=== PATIENT | female | born 1950 | race Caucasian/White ===

== ENCOUNTER 2017-09-13 22:53 | Emergency (ER) | payer MEDICARE, BC ==
[2017-09-13] MEDS ORDERED: Sodium Chloride 0.9% 10 ML Syringe FLUSH PRN (23:01)
[2017-09-13] MEDS ORDERED: Sodium Chloride 0.9% 1,000 ML IV ONE (23:01)
--- NOTE | 2017-09-13 23:12 | EDM.PDOC ---
ED HPI GENERAL MEDICAL PROBLEM - General Chief Complaint: General Stated Complaint: dizziness, shoulder pain Time Seen by Provider: 09/13/17 23:00 Source of Information: Reports: Patient, Family History Limitations: Reports: No Limitations - History of Present Illness INITIAL COMMENTS - FREE TEXT/NARRATIVE: Patient is brought in by family with complaints of nausea, dizziness, and left chest/shoulder pain that started approximately 1 hour ago. Her left chest pain is reproducible on palpation and movement. She denies shortness of breath, headache, abdominal pain, no emesis or blood in her urine or stool. She is forgetful and does appear to have dementia. Home medications include synthroid , namenda, lorazepam, effexor. She denies any prior [place] or CVA. States she has hypothyroidism. She did not faint or lose consciousness. She also did not fall or hit her head. She denies having a primary doctor or taking daily meds but it is her and daughter that remind her of what she is in fact taking. Onset: Today, Sudden Onset Date: 09/13/17 Onset Time: 22:30 Duration: Intermittent Location: Reports: Chest Quality: Reports: Ache Severity: Mild Improves with: Reports: None Worsens with: Reports: Movement Associated Symptoms: Reports: Nausea/Vomiting Left Chest Pain Score (Numeric/FACES): 5 - Related Data Allergies Allergy/AdvReac Type Severity Reaction Status Date / Time No Known Allergies Allergy Verified 09/13/17 23:03 Home Meds: Home Meds Escitalopram [Lexapro] 10 mg PO DAILY 09/13/17 [History] LORazepam 0.5 mg PO Q4H PRN 09/13/17 [History] Levothyroxine 125 mcg PO DAILY 09/13/17 [History] Memantine HCl [Namenda] 5 mg PO BID 09/13/17 [History] Polyethylene Glycol 3350 [MiraLAX] 17 gm PO DAILY PRN 09/13/17 [History] QUEtiapine Fumarate [Seroquel] 25 mg PO BID 09/13/17 [History] ED ROS GENERAL - Review of Systems Review Of Systems: See Below Constitutional: Reports: No Symptoms HEENT: Reports: No Symptoms Respiratory: Reports: No Symptoms Cardiovascular: Reports: Chest Pain Endocrine: Reports: No Symptoms GI/Abdominal: Reports: Nausea : Reports: No Symptoms Musculoskeletal: Reports: Shoulder Pain Skin: Reports: No Symptoms Neurological: Reports: Confusion, Other Psychiatric: Reports: Anxiety Hematologic/Lymphatic: Reports: No Symptoms Immunologic: Reports: No Symptoms ED EXAM, GENERAL - Physical Exam Exam: See Below Exam Limited By: Altered Mental Status (forgetful, answers most questions accurately, not a reliable historian) General Appearance: Alert, WD/WN Eye Exam: Bilateral Eye: EOMI, PERRL Ears: Normal TMs Nose: Normal Inspection, Normal Mucosa, No Blood Throat/Mouth: Normal Inspection, Normal Lips, Normal Teeth, Normal Gums, Normal Oropharynx, Normal Voice, No Airway Compromise Head: Atraumatic, Normocephalic Neck: Normal Inspection, Supple, Non-Tender, Full Range of Motion Respiratory/Chest: No Respiratory Distress, Lungs Clear, Normal Breath Sounds, No Accessory Muscle Use, Chest Non-Tender, Other (left chest/breast area has reproducible pain on palpation and arm movement) Cardiovascular: Normal Peripheral Pulses, Regular Rate, Rhythm, No Edema, No Gallop, No JVD, No Murmur, No Rub Peripheral Pulses: 2+: Posterior Tibial (L), Posterior Tibial (R), Dorsalis Pedis (L), Dorsalis Pedis (R) GI/Abdominal: Normal Bowel Sounds, Soft, Non-Tender, No Organomegaly, No Distention, No Abnormal Bruit, No Mass Back Exam: Normal Inspection, Full Range of Motion, NT Extremities: Normal Inspection, Normal Range of Motion, Non-Tender, Normal Capillary Refill, No Pedal Edema Neurological: Alert, CN II-XII Intact, No Motor/Sensory Deficits, Memory Loss Recent Events. No: Oriented Psychiatric: Anxious Skin Exam: Warm, Dry, Intact, Normal Color, No Rash Lymphatic: No Adenopathy Course - Vital Signs Last Recorded V/S: Last Vital Signs Temp 36.6 C 09/13/17 23:04 Pulse 53 L 09/13/17 23:04 Resp 18 09/13/17 23:04 BP 122/55 L 09/13/17 23:04 Pulse Ox 100 09/13/17 23:04 - Orders/Labs/Meds Orders: Active Orders 24 hr Category Date Time Status EKG Documentation Completion [RC] URGENT Care 09/13/17 23:01 Active Saline Lock Insert [OM.PC] Routine Oth 09/13/17 23:01 Ordered Labs: Laboratory Tests 09/13/17 09/13/17 09/13/17 Range/Units 23:42 23:42 23:42 WBC 10.0 (4.0-10.0) x10^3/uL RBC 4.36 (4.00-5.50) x10^6/uL Hgb 13.3 (12.0-16.0) g/dL Hct 40.5 (33.0-47.0) % MCV 92.9 (78.0-93.0) fL MCH 30.5 (26.0-32.0) pg MCHC 32.8 (32.0-36.0) g/dL RDW Coeff of Marcel 13.0 (10.0-15.0) % Plt Count 192 (130-400) x10^3/uL Neut % (Auto) 81.0 H (50.0-80.0) % Lymph % (Auto) 11.3 L (25.0-50.0) % [place] % (Auto) 6.1 (2.0-11.0) % Eos % (Auto) 1.2 (0.0-4.0) % Baso % (Auto) 0.4 (0.2-1.2) % PT 10.1 (9.6-11.4) SEC INR 1.0 L (2.0-3.5) Sodium 143 (136-145) mmol/L Potassium 3.8 (3.5-5.1) mmol/L Chloride 104 (98-107) mmol/L Carbon Dioxide 31 (21-32) mmol/L Anion Gap 11.8 (10-20) mmol/L BUN 15 (7-18) mg/dL Creatinine 1.0 (0.55-1.02) mg/dL Est Cr Clr Drug Dosing TNP Estimated GFR (MDRD) 55 Glucose 96 (74-106) mg/dL Lactic Acid (0.4-2.0) mmol/L Calcium 9.1 (8.5-10.1) mg/dL Corrected Calcium 9.26 (8.5-10.1) mg/dL Magnesium 2.3 (1.8-2.4) mg/dL Total Bilirubin 0.3 (0.2-1.0) mg/dL AST 29 (15-37) U/L ALT 29 (14-59) U/L Alkaline Phosphatase 87 (46-116) U/L Troponin I < 0.017 (<=0.056) ng/mL NT-Pro-B Natriuret Pep 177 H (<=125) pg/mL Total Protein 7.0 (6.4-8.2) g/dL Albumin 3.8 (3.4-5.0) g/dL Globulin 3.2 Albumin/Globulin Ratio 1.19 TSH, Ultra Sensitive 8.580 H (0.358-3.74) uIU/mL 09/13/17 Range/Units 23:42 WBC (4.0-10.0) x10^3/uL RBC (4.00-5.50) x10^6/uL Hgb (12.0-16.0) g/dL Hct (33.0-47.0) % MCV (78.0-93.0) fL MCH (26.0-32.0) pg MCHC (32.0-36.0) g/dL RDW Coeff of Marcel (10.0-15.0) % Plt Count (130-400) x10^3/uL Neut % (Auto) (50.0-80.0) % Lymph % (Auto) (25.0-50.0) % [place] % (Auto) (2.0-11.0) % Eos % (Auto) (0.0-4.0) % Baso % (Auto) (0.2-1.2) % PT (9.6-11.4) SEC INR (2.0-3.5) Sodium (136-145) mmol/L Potassium (3.5-5.1) mmol/L Chloride (98-107) mmol/L Carbon Dioxide (21-32) mmol/L Anion Gap (10-20) mmol/L BUN (7-18) mg/dL Creatinine (0.55-1.02) mg/dL Est Cr Clr Drug Dosing Estimated GFR (MDRD) Glucose (74-106) mg/dL Lactic Acid 1.3 (0.4-2.0) mmol/L Calcium (8.5-10.1) mg/dL Corrected Calcium (8.5-10.1) mg/dL Magnesium (1.8-2.4) mg/dL Total Bilirubin (0.2-1.0) mg/dL AST (15-37) U/L ALT (14-59) U/L Alkaline Phosphatase (46-116) U/L Troponin I (<=0.056) ng/mL NT-Pro-B Natriuret Pep (<=125) pg/mL Total Protein (6.4-8.2) g/dL Albumin (3.4-5.0) g/dL Globulin Albumin/Globulin Ratio TSH, Ultra Sensitive (0.358-3.74) uIU/mL Meds: Medications Discontinued Medications Generic Name Dose Route Start Last Admin Trade Name Freq PRN Reason Stop Dose Admin Sodium Chloride 1,000 mls @ 999 mls/hr 09/13/17 23:01 09/13/17 23:31 Normal Saline IV 09/14/17 00:01 999 mls/hr ONETIME ONE Administration Sodium Chloride 10 ml 09/13/17 23:01 Saline Flush FLUSH ASDIRECTED PRN Keep Vein Open Departure - Departure Time of Disposition: 00:23 Disposition: Home, Self-Care 01 Condition: Good Clinical Impression: Chest pain, non-cardiac - Discharge Information Instructions: Chest Wall Pain, [id number] Referrals: Lesley Zarate, [Primary Care Provider] - Forms: ED Department Discharge Additional Instructions: Stay well hydrated. Your chest/shoulder pain do not appear to be related to problems with your heart. I am able to produce that pain when I push on it and when you breathe deeply you experience similar type pain. Your labs are normal except your TSH which is 8.5. This is a high number and should be addressed with your primary. Follow up with Dr. Zarate as needed for additional symptom management. Sometimes your medications can also cause you to become dizzy. Make sure to rise slowly from seated or lying positions. Please call us if you have any questions or concerns. - Problem List & Annotations (1) Chest pain, non-cardiac SNOMED Code(s): 122607217 Code(s): R07.89 - OTHER CHEST PAIN Status: Acute Priority: Low - Problem List Review Problem List Initiated/Reviewed/Updated: Yes - My Orders Last 24 Hours: My Active Orders 09/13/17 23:01 EKG Documentation Completion [RC] URGENT Saline Lock Insert [OM.PC] Routine - Assessment/Plan Last 24 Hours: My Active Orders 09/13/17 23:01 EKG Documentation Completion [RC] URGENT Saline Lock Insert [OM.PC] Routine Assessment:: chest pain, non specific, non cardiac Plan: Stay well hydrated. Your chest/shoulder pain do not appear to be related to problems with your heart. I am able to produce that pain when I push on it and when you breathe deeply you experience similar type pain. Your labs are normal except your TSH which is 8.5. This is a high number and should be addressed with your primary. Follow up with Dr. Zarate as needed for additional symptom management. Sometimes your medications can also cause you to become dizzy. Make sure to rise slowly from seated or lying positions. Please call us if you have any questions or concerns.
[2017-09-14 00:20] LABS: CHLORIDE,CL 104 mmol/L (98-107); SODIUM,NA 143 mmol/L (136-145)
== END 2017-09-14 00:31 | disposition home or self-care (01) ==
LOC: VM.ED 22:53
DX: R07.89 Other chest pain (principal); Z79.899 Other long term (current) drug therapy
CPT/HCPCS: 36415; 80053; 83605; 83735; 83880; 84443; 84484; 85025; 85610; 93005; 96360; 99285; J7030; 99284-GF

== ENCOUNTER 2019-04-23 07:30 | Emergency (ER) | payer MEDICARE, BC ==
[2019-04-23] MEDS ORDERED: Sodium Chloride 0.9% 10 ML Syringe FLUSH PRN (07:43)
--- NOTE | 2019-04-23 07:49 | EDM.PDOC ---
ED HPI GENERAL MEDICAL PROBLEM - General Stated Complaint: HEAD/NECK HURT Time Seen by Provider: 04/23/19 07:45 Source of Information: Reports: Patient History Limitations: Reports: Altered Mental Status (Pt has advanced Alzheimer's /dementia) - History of Present Illness INITIAL COMMENTS - FREE TEXT/NARRATIVE: Patient comes into the emergency department with her family with complaint of unsteadiness and headache. Patient woke up around 2 AM this morning with a headache and unsteady gait. Family was concerned due to the increasing of the patient's verbal regard to the headache and needing to have assistance to walk around the house. They state she did have a fall approximately 7 days ago they do not believe she hit her head for she tripped over her feet and fell onto her side. Her was with her and he ended up falling to when he sustained no injuries. Patient was diagnosed with Alzheimer/dementia approximately 2 years ago and family states that she has advanced stages. They have difficulty understanding and following her at times. But she has been fairly independent with ambulation so they became concerned when she was needing assistance Onset: Sudden - Related Data Allergies Allergy/AdvReac Type Severity Reaction Status Date / Time No Known Allergies Allergy Verified 09/13/17 23:03 Home Meds: Home Meds Escitalopram [Lexapro] 10 mg PO DAILY 09/13/17 [History] LORazepam 0.5 mg PO Q4H PRN 09/13/17 [History] Levothyroxine 125 mcg PO DAILY 09/13/17 [History] Memantine HCl [Namenda] 5 mg PO DAILY 09/13/17 [History] Polyethylene Glycol 3350 [MiraLAX] 17 gm PO DAILY PRN 09/13/17 [History] QUEtiapine Fumarate [Seroquel] 25 mg PO BEDTIME 09/13/17 [History] QUEtiapine [SEROquel] 25 mg PO DAILY 02/03/18 [History] Past Medical History Cardiovascular History: Reports: Hypertension, Other (See Below) Other Cardiovascular History: bacterial endocarditis, aortic and mitral valve leaks Neurological History: Reports: Alzheimers Disease Psychiatric History: Reports: Dementia, Depression, Psychosis Endocrine/Metabolic History: Reports: Hypothyroidism ED ROS GENERAL - Review of Systems Review Of Systems: Comprehensive ROS is negative, except as noted in HPI. Constitutional: Reports: No Symptoms HEENT: Reports: No Symptoms Respiratory: Reports: No Symptoms Cardiovascular: Reports: No Symptoms Endocrine: Reports: No Symptoms GI/Abdominal: Reports: No Symptoms : Reports: No Symptoms Musculoskeletal: Reports: No Symptoms Skin: Reports: No Symptoms Hematologic/Lymphatic: Reports: No Symptoms Immunologic: Reports: No Symptoms ED EXAM, GENERAL - Physical Exam Exam: See Below Exam Limited By: No Limitations General Appearance: No Apparent Distress Eye Exam: Bilateral Eye: EOMI, PERRL Ears: Normal External Exam, Normal Canal, Hearing Grossly Normal Ear Exam: Bilateral Ear: Auricle Normal, Canal Normal, TM normal Neck: Normal Inspection, Supple, Non-Tender, Full Range of Motion Respiratory/Chest: No Respiratory Distress, Lungs Clear, Normal Breath Sounds, No Accessory Muscle Use, Chest Non-Tender Cardiovascular: Normal Peripheral Pulses, Regular Rate, Rhythm, No Edema, No Gallop, No JVD, No Murmur, No Rub Back Exam: Normal Inspection, Full Range of Motion, NT Extremities: Normal Inspection, Normal Range of Motion, Non-Tender, Normal Capillary Refill, No Pedal Edema Neurological: Alert, CN II-XII Intact, No Motor/Sensory Deficits Psychiatric: Normal Affect, Normal Mood Skin Exam: Warm, Dry, Intact, Normal Color, No Rash Course - Orders/Labs/Meds Orders: Active Orders 24 hr Category Date Time Status EKG Documentation Completion [] STAT Care 04/23/19 07:43 Active POC Glucose [Blood Glucose Check, Bedside] [] ONETIME Care 04/23/19 07:44 Active Sodium Chloride 0.9% [Saline Flush] Med 04/23/19 07:43 Active 10 ml FLUSH ASDIRECTED PRN Peripheral IV Insertion Adult [OM.PC] Stat Oth 04/23/19 07:42 Ordered Medication Orders Sodium Chloride (Saline Flush) 10 ml FLUSH ASDIRECTED PRN PRN Reason: Keep Vein Open Labs: Laboratory Tests 04/23/19 04/23/19 04/23/19 Range/Units 07:41 07:51 07:51 WBC 5.3 (4.0-10.0) x10^3/uL RBC 4.52 (4.00-5.50) x10^6/uL Hgb 13.7 (12.0-16.0) g/dL Hct 39.9 (33.0-47.0) % MCV 88.3 D (78.0-93.0) fL MCH 30.3 (26.0-32.0) pg MCHC 34.3 (32.0-36.0) g/dL RDW Coeff of Marcel 13.1 (10.0-15.0) % Plt Count 175 (130-400) x10^3/uL Neut % (Auto) 72.5 (50.0-80.0) % Lymph % (Auto) 18.1 L (25.0-50.0) % [place] % (Auto) 7.9 (2.0-11.0) % Eos % (Auto) 1.1 (0.0-4.0) % Baso % (Auto) 0.4 (0.2-1.2) % PT 10.8 (10.0-12.8) SEC INR 1.0 L (2.0-3.5) Sodium (136-145) mmol/L Potassium (3.5-5.1) mmol/L Chloride (98-107) mmol/L Carbon Dioxide (21-32) mmol/L Anion Gap (10-20) mmol/L BUN (7-18) mg/dL Creatinine (0.55-1.02) mg/dL Est Cr Clr Drug Dosing Estimated GFR (MDRD) Glucose (74-106) mg/dL POC Glucose 116 H (74-106) mg/dL Calcium (8.5-10.1) mg/dL Corrected Calcium (8.5-10.1) mg/dL Total Bilirubin (0.2-1.0) mg/dL AST (15-37) U/L ALT (14-59) U/L Alkaline Phosphatase (46-116) U/L Troponin I (<=0.056) ng/mL Total Protein (6.4-8.2) g/dL Albumin (3.4-5.0) g/dL Globulin Albumin/Globulin Ratio 04/23/19 Range/Units 07:51 WBC (4.0-10.0) x10^3/uL RBC (4.00-5.50) x10^6/uL Hgb (12.0-16.0) g/dL Hct (33.0-47.0) % MCV (78.0-93.0) fL MCH (26.0-32.0) pg MCHC (32.0-36.0) g/dL RDW Coeff of Marcel (10.0-15.0) % Plt Count (130-400) x10^3/uL Neut % (Auto) (50.0-80.0) % Lymph % (Auto) (25.0-50.0) % [place] % (Auto) (2.0-11.0) % Eos % (Auto) (0.0-4.0) % Baso % (Auto) (0.2-1.2) % PT (10.0-12.8) SEC INR (2.0-3.5) Sodium 143 (136-145) mmol/L Potassium 3.1 L (3.5-5.1) mmol/L Chloride 100 (98-107) mmol/L Carbon Dioxide 31 (21-32) mmol/L Anion Gap 15.1 (10-20) mmol/L BUN 12 (7-18) mg/dL Creatinine 1.1 H (0.55-1.02) mg/dL Est Cr Clr Drug Dosing TNP Estimated GFR (MDRD) 49 Glucose 110 H (74-106) mg/dL POC Glucose (74-106) mg/dL Calcium 9.5 (8.5-10.1) mg/dL Corrected Calcium 9.74 (8.5-10.1) mg/dL Total Bilirubin 0.6 (0.2-1.0) mg/dL AST 24 (15-37) U/L ALT 17 (14-59) U/L Alkaline Phosphatase 96 (46-116) U/L Troponin I < 0.017 (<=0.056) ng/mL Total Protein 7.0 (6.4-8.2) g/dL Albumin 3.7 (3.4-5.0) g/dL Globulin 3.3 Albumin/Globulin Ratio 1.12 Meds: Medications Generic Name Dose Route Start Last Admin Trade Name Freq PRN Reason Stop Dose Admin Sodium Chloride 10 ml 04/23/19 07:43 Saline Flush FLUSH ASDIRECTED PRN Keep Vein Open Discontinued Medications Generic Name Dose Route Start Last Admin Trade Name Freq PRN Reason Stop Dose Admin Diphenhydramine HCl 25 mg 04/23/19 08:01 Benadryl IVPUSH 04/23/19 08:02 ONETIME ONE Metoclopramide HCl 5 mg 04/23/19 08:04 Reglan IVPUSH 04/23/19 08:05 ONETIME ONE Prochlorperazine Edisylate 10 mg 04/23/19 08:01 Compazine IV 04/23/19 08:02 ONETIME ONE Departure - Departure Time of Disposition: 09:00 Disposition: Home, Self-Care 01 Condition: Good Clinical Impression: Unsteady gait Headache Qualifiers: Headache type: other headache syndrome Qualified Code(s): G44.89 - Other headache syndrome - Discharge Information *PRESCRIPTION DRUG MONITORING PROGRAM REVIEWED*: Not Applicable *COPY OF PRESCRIPTION DRUG MONITORING REPORT IN PATIENT BEATRIZ: Not Applicable Instructions: Fall Prevention in the Home, Adult, [id number], Migraine Headache Additional Instructions: 1. rest 2. increase your water intake 3. Can take Tylenol or ibuprofen as needed for pain and discomfort 4. Follow-up with her primary care provider if symptoms continue or return to the ER if symptoms progress 5. Activity and diet as tolerated 6. Call with any questions or concerns Sepsis Event Note - Focused Exam Date Exam was Performed: 04/23/19 Time Exam was Performed: 08:57 - My Orders Last 24 Hours: My Active Orders 04/23/19 07:42 Peripheral IV Insertion Adult [OM.PC] Stat 04/23/19 07:43 EKG Documentation Completion [RC] STAT Sodium Chloride 0.9% [Saline Flush] 10 ml FLUSH ASDIRECTED PRN 04/23/19 07:44 POC Glucose [Blood Glucose Check, Bedside] [RC] ONETIME - Assessment/Plan Last 24 Hours: My Active Orders 04/23/19 07:42 Peripheral IV Insertion Adult [OM.PC] Stat 04/23/19 07:43 EKG Documentation Completion [RC] STAT Sodium Chloride 0.9% [Saline Flush] 10 ml FLUSH ASDIRECTED PRN 04/23/19 07:44 POC Glucose [Blood Glucose Check, Bedside] [RC] ONETIME Assessment:: 1. headache 2. unsteady gait 3. Stroke code Plan: 1. Labs completed in ER. Results reviewed with patient 2. EKG completed in ER. Results reviewed patient 3. CT scan of the head without contrast completed in the ER. 4. Stroke code initiated upon patient's arrival due to sudden onset headache and unsteady gait 5. Initial NIH 0 (0735), NIH 0 (0800) 6. Did discuss with the patient and family regarding observation monitoring for if symptoms do return. Also did discuss case with the patient's primary care provider. Patient is reluctant for admission same with family states that she does get increasing confusion and agitation. The family would like to take patient home. Patient's primary care provider Dr. Zarate is okay with this option. 7. risk and benefits were discussed with the family and education was provided 8. All questions and concerns were addressed with the patient and family prior to discharge
[2019-04-23] MEDS ORDERED: diphenhydrAMINE 50 MG/ML SDV IVPUSH ONE (08:01)
[2019-04-23] MEDS ORDERED: Prochlorperazine 10 MG/2 ML SDV IV ONE (08:01)
[2019-04-23] MEDS ORDERED: Metoclopramide 10 MG/2 ML SDV IVPUSH ONE (08:04)
[2019-04-23 08:21] LABS: ANION GAP 15.1 mmol/L (10-20); CHLORIDE,CL 100 mmol/L (98-107); SODIUM,NA 143 mmol/L (136-145)
--- NOTE | 2019-04-23 08:21 | CT ---
[id number] CT/CT Head WO IV EXAM: CT Head WO IV CLINICAL DATA: STROKE CODE. COMPARISON STUDY: January 2018. FINDINGS: No intracranial hemorrhage, extra-axial fluid collection, mass, or acute ischemia. Central predominant diffuse parenchymal atrophy throughout both cerebral hemispheres. Hypodensity in the subcortical and periventricular white matter most prominent posteriorly on the right adjacent to the lateral ventricle occipital horn. Findings are nonspecific but commonly seen as sequela of chronic small vessel disease. Appearance is similar to January 2018. Paranasal sinuses and mastoid air cells are clear. IMPRESSION: No acute findings in the brain. Chronic findings are described above. Results relayed to Olamide Caro at time of dictation. Dylan Humphrey MD 04/23/19 0820 Thank you for allowing us to participate in the care of your patient.
== END 2019-04-23 09:10 | disposition home or self-care (01) ==
LOC: VM.ED 07:30
DX: G44.89 Other headache syndrome (principal); R26.81 Unsteadiness on feet; G30.9 Alzheimer's disease, unspecified; F02.80 Dementia in other diseases classified elsewhere, unspecified severity, without behavioral disturbance, psychotic disturbance, mood disturbance, and anxiety; I10 Essential (primary) hypertension; F32.9 Major depressive disorder, single episode, unspecified; Z79.899 Other long term (current) drug therapy; W01.0XXA Fall on same level from slipping, tripping and stumbling without subsequent striking against object, initial encounter
CPT/HCPCS: 70450; 80053; 82962; 84484; 85025; 85610; 93005; 99284-GF; 99285-25

== ENCOUNTER 2019-06-15 11:50 | Observation (INO) | payer MEDICARE, BC ==
--- NOTE | 2019-06-15 12:36 | CR ---
[id number] RAD/RAD Chest PA or AP 1V EXAM: RAD Chest PA or AP 1V INDICATION: SHORTNESS OF BREATH. COMPARISON: June 15, 2019. DISCUSSION: Cardiomediastinal silhouette is normal in size and contour. No infiltrate, effusion, pneumothorax, or edema. IMPRESSION: No acute cardiopulmonary abnormality. Rui Soto DO 06/15/19 [id number] Thank you for allowing us to participate in the care of your patient.
--- NOTE | 2019-06-15 12:38 | CT ---
[id number] CT/CT Head Stroke Protocol EXAM: NONCONTRAST HEAD CT INDICATION: MENTAL STATUS CHANGE. COMPARISON: April 23, 2019. DISCUSSION: Stable right parieto-occipital encephalomalacia most consistent with an old infarct. No acute territorial infarct is identified. There are stable mild to moderate chronic small vessel ischemic changes and there is stable mild generalized atrophy. No mass effect, midline shift, hydrocephalus or acute hemorrhage is identified. The orbits and paranasal sinuses are unremarkable. Results called 12:34 PM on 06/15/2019. IMPRESSION: 1. Chronic right parieto-occipital infarct. No acute findings. Heath Newton MD 06/15/19 [id number] Thank you for allowing us to participate in the care of your patient.
[2019-06-15 13:26] LABS: CHLORIDE,CL 95 mmol/L (98-107); SODIUM,NA 139 mmol/L (136-145)
[2019-06-15 13:30] LABS: ANION GAP 9.7 mmol/L (10-20)
[2019-06-15] MEDS ORDERED: Lidocaine 2% HCl 11 ML Jelly Filled Syringe MM ONE (15:00)
[2019-06-15] MEDS ORDERED: Potassium Chloride Riders 20 MEQ in Premix Bag 1 BAG IV ONE (19:53)
[2019-06-15] MEDS ORDERED: NS + KCl 20mEq/L 1,000 ML IV SCH (20:00)
[2019-06-15] MEDS: risperiDONE 0.25 MG Tab PO SCH (20:41)
[2019-06-15] MEDS: LORazepam 0.5 MG Tab PO SCH (20:41)
[2019-06-16] MEDS: Levothyroxine 75 MCG Tab PO SCH (06:34)
[2019-06-16] MEDS: Levothyroxine 112 MCG Tab PO SCH (06:35)
[2019-06-16 07:39] LABS: ANION GAP 9.7 mmol/L (10-20)
[2019-06-16] MEDS: Polyethylene Glycol 3350 Powder 17 GM Packet PO SCH (07:45)
[2019-06-16] MEDS: risperiDONE 0.25 MG Tab PO SCH ×2 (07:45→21:00)
[2019-06-16] MEDS: LORazepam 0.5 MG Tab PO SCH (07:46)
[2019-06-16] MEDS: Citalopram 20 MG Tab PO SCH (07:47)
[2019-06-16] MEDS: Memantine 10 MG Tab PO SCH (07:47)
--- NOTE | 2019-06-16 08:57 | PCM.PN ---
- General Info Date of Service: 06/16/19 Subjective Update: Pt. slept well overnight. She offers on complain on rounds. She is able to eat but states that she is not hungry. Pt. potassium is still 2.7 this AM. She has not developed any elevated white count. She appears to be somewhat fatigued. Denies any chest pain or shortness of breath. ProBNP 378. No body aches. No nausea, vomiting or diarrhea. Denies any dysuria, frequency or urgency. Functional Status: Reports: Pain Controlled - Review of Systems General: Reports: No Symptoms HEENT: Reports: No Symptoms Pulmonary: Reports: No Symptoms Cardiovascular: Reports: No Symptoms Gastrointestinal: Reports: No Symptoms Genitourinary: Reports: No Symptoms Musculoskeletal: Reports: No Symptoms Skin: Reports: No Symptoms Neurological: Reports: Confusion Psychiatric: Reports: Confusion - Patient Data Vitals - Most Recent: Last Vital Signs Temp 36.1 C 06/16/19 05:10 Pulse 47 L 06/16/19 05:10 Resp 12 06/16/19 05:10 BP 113/50 L 06/16/19 05:10 Pulse Ox 96 06/16/19 05:10 Weight - Most Recent: 75.841 kg I&O - Last 24 Hours: Intake & Output 06/15/19 06/16/19 06/16/19 22:59 06:59 14:59 Output Total 200 575 Balance -200 -575 Lab Results Last 24 Hours: Laboratory Results - last 24 hr 06/15/19 06/15/19 06/15/19 Range/Units 12:35 12:35 13:30 WBC 6.7 (4.0-10.0) x10^3/uL RBC 4.49 (4.00-5.50) x10^6/uL Hgb 13.5 (12.0-16.0) g/dL Hct 38.6 (33.0-47.0) % MCV 86.0 (78.0-93.0) fL MCH 30.1 (26.0-32.0) pg MCHC 35.0 (32.0-36.0) g/dL RDW Coeff of Marcel 12.2 (10.0-15.0) % Plt Count 248 (130-400) x10^3/uL Neut % (Auto) 77.6 (50.0-80.0) % Lymph % (Auto) 13.1 L (25.0-50.0) % Alexander % (Auto) 7.5 (2.0-11.0) % Eos % (Auto) 1.5 (0.0-4.0) % Baso % (Auto) 0.3 (0.2-1.2) % Sodium 139 (136-145) mmol/L Potassium 2.7 L* (3.5-5.1) mmol/L Chloride 95 L (98-107) mmol/L Carbon Dioxide 37 H (21-32) mmol/L Anion Gap 9.7 L (10-20) mmol/L BUN 10 (7-18) mg/dL Creatinine 1.2 H (0.55-1.02) mg/dL Est Cr Clr Drug Dosing 37.13 mL/min Estimated GFR (MDRD) 44 Glucose 108 H (74-106) mg/dL Calcium 8.3 L (8.5-10.1) mg/dL Corrected Calcium 8.54 (8.5-10.1) mg/dL Magnesium 2.4 (1.8-2.4) mg/dL Total Bilirubin 0.9 (0.2-1.0) mg/dL AST 37 (15-37) U/L ALT 32 (14-59) U/L Alkaline Phosphatase 96 (46-116) U/L Troponin I < 0.017 (<=0.056) ng/mL C-Reactive Protein 1.9 H (<=0.9) mg/dL NT-Pro-B Natriuret Pep 201 H (<=125) pg/mL Total Protein 7.2 (6.4-8.2) g/dL Albumin 3.7 (3.4-5.0) g/dL Globulin 3.5 Albumin/Globulin Ratio 1.06 Urine Color Yellow (YELLOW) Urine Appearance Slightly cloudy H (CLEAR) Urine pH 7.0 (5.0-8.0) Ur Specific [place] 1.020 Urine Protein Negative (NEGATIVE) mg/dL Urine Glucose (UA) Negative (NEGATIVE) mg/dL Urine Ketones Negative (NEGATIVE) mg/dL Urine Occult Blood Negative (NEGATIVE) Urine Nitrite Negative (NEGATIVE) Urine Bilirubin Negative (NEGATIVE) Urine Urobilinogen 1.0 (0.2) EU/dL Ur Leukocyte Esterase Trace H (NEGATIVE) Urine RBC 0-5 (NOT SEEN) /HPF Urine WBC 5-10 H (NOT SEEN) /HPF Ur Squamous Epith Cells Few H (NEGATIVE) /HPF Urine Bacteria Occasional H (NEGATIVE) /HPF Urine Mucus Rare H (NEGATIVE) /LPF 06/16/19 06/16/19 06/16/19 Range/Units 07:03 07:03 07:03 WBC 5.2 (4.0-10.0) x10^3/uL RBC 4.21 (4.00-5.50) x10^6/uL Hgb 12.6 (12.0-16.0) g/dL Hct 36.9 (33.0-47.0) % MCV 87.6 (78.0-93.0) fL MCH 29.9 (26.0-32.0) pg MCHC 34.1 (32.0-36.0) g/dL RDW Coeff of Marcel 12.3 (10.0-15.0) % Plt Count 215 (130-400) x10^3/uL Neut % (Auto) 72.5 (50.0-80.0) % Lymph % (Auto) 15.9 L (25.0-50.0) % Alexander % (Auto) 8.9 (2.0-11.0) % Eos % (Auto) 2.1 (0.0-4.0) % Baso % (Auto) 0.6 (0.2-1.2) % Sodium 142 (136-145) mmol/L Potassium 2.7 L* (3.5-5.1) mmol/L Chloride 101 (98-107) mmol/L Carbon Dioxide 34 H (21-32) mmol/L Anion Gap 9.7 L (10-20) mmol/L BUN 8 (7-18) mg/dL Creatinine 1.1 H (0.55-1.02) mg/dL Est Cr Clr Drug Dosing 40.51 mL/min Estimated GFR (MDRD) 49 Glucose 103 (74-106) mg/dL Calcium 8.7 (8.5-10.1) mg/dL Corrected Calcium 9.42 (8.5-10.1) mg/dL Magnesium 2.4 (1.8-2.4) mg/dL Total Bilirubin 0.8 (0.2-1.0) mg/dL AST 31 (15-37) U/L ALT 25 (14-59) U/L Alkaline Phosphatase 83 (46-116) U/L Troponin I (<=0.056) ng/mL C-Reactive Protein (<=0.9) mg/dL NT-Pro-B Natriuret Pep 378 H (<=125) pg/mL Total Protein 6.1 L (6.4-8.2) g/dL Albumin 3.1 L (3.4-5.0) g/dL Globulin 3.0 Albumin/Globulin Ratio 1.03 Urine Color (YELLOW) Urine Appearance (CLEAR) Urine pH (5.0-8.0) Ur Specific [place] Urine Protein (NEGATIVE) mg/dL Urine Glucose (UA) (NEGATIVE) mg/dL Urine Ketones (NEGATIVE) mg/dL Urine Occult Blood (NEGATIVE) Urine Nitrite (NEGATIVE) Urine Bilirubin (NEGATIVE) Urine Urobilinogen (0.2) EU/dL Ur Leukocyte Esterase (NEGATIVE) Urine RBC (NOT SEEN) /HPF Urine WBC (NOT SEEN) /HPF Ur Squamous Epith Cells (NEGATIVE) /HPF Urine Bacteria (NEGATIVE) /HPF Urine Mucus (NEGATIVE) /LPF Med Orders - Current: Current Medications Citalopram Hydrobromide (Celexa) 20 mg PO DAILY [facility] Last Admin: 06/16/19 07:47 Dose: 20 mg Potassium Chloride/Sodium Chloride (Normal Saline With 40 Meq Kcl) 1,000 mls @ 150 mls/hr IV ASDIRECTED [facility] Levothyroxine Sodium (Levothyroxine) 112 mcg PO ACBREAKFAST [facility] Last Admin: 06/16/19 06:35 Dose: 112 mcg Levothyroxine Sodium (Levothyroxine) 75 mcg PO ACBREAKFAST [facility] Last Admin: 06/16/19 06:34 Dose: 75 mcg Lorazepam (Ativan) 0.5 mg PO BID [facility] Last Admin: 06/16/19 07:46 Dose: 0.5 mg Memantine (Namenda) 5 mg PO DAILY [facility] Last Admin: 06/16/19 07:47 Dose: 5 mg Polyethylene Glycol (Miralax) 17 gm PO DAILY [facility] Last Admin: 06/16/19 07:45 Dose: 17 gm Risperidone (Risperidal) 0.5 mg PO BID [facility] Last Admin: 06/16/19 07:45 Dose: 0.5 mg Discontinued Medications Potassium Chloride/Sodium Chloride (Normal Saline With 20 Meq Kcl) 1,000 mls @ 50 mls/hr IV ASDIRECTED [facility] Last Admin: 06/15/19 22:49 Dose: 50 mls/hr Potassium Chloride 20 meq/ (Premix) 50 mls @ 25 mls/hr IV ONETIME ONE Stop: 06/15/19 21:52 Last Admin: 06/15/19 20:40 Dose: 25 mls/hr - Exam Quality Assessment: Supplemental Oxygen General: Alert, Oriented HEENT: Pupils Equal, Pupils Reactive, EOMI, Mucous Membr. Moist/[place] Neck: Supple Lungs: Clear to Auscultation, Normal Respiratory Effort Cardiovascular: Regular Rate, Regular Rhythm GI/Abdominal Exam: Soft, Non-Tender, No Organomegaly, No Distention, No Abnormal Bruit, No Mass, Pelvis Stable (Female) Exam: Deferred Back Exam: Normal Inspection, Full Range of Motion Extremities: Normal Capillary Refill, Pedal Edema Peripheral Pulses: 4+: Radial (L) Skin: Warm, Dry, Intact Neurological: No New Focal Deficit, Other (strength in upper and lower extremities is equal bilaterally. No facial droop. Pt. is able to recall that she is in a hospital but not specifically which one.) Psy/Mental Status: Alert, Normal Affect, Labile Mood Sepsis Event Note - Evaluation Sepsis Screening Result: No Definite Risk - Focused Exam Vital Signs: Vital Signs Temp Pulse Resp BP Pulse Ox 06/16/19 05:10 36.1 C 47 L 12 113/50 L 96 06/16/19 01:56 36.3 C 54 L 16 99/43 L 99 06/15/19 21:23 36.4 C 57 L 16 97/48 L 95 Date Exam was Performed: 06/16/19 Time Exam was Performed: 08:57 - Problem List Review Problem List Initiated/Reviewed/Updated: Yes - My Orders Last 24 Hours: My Active Orders 06/16/19 08:18 Abdomen Pelvis w Cont [CT] Stat 06/16/19 08:45 Sodium Chloride 0.9% with KCl [Normal Saline with 40 mEq KCl] 1,000 ml IV ASDIRECTED - Plan Plan:: Pt. was changed to NS with 40KCL at 150/hr. Pt. to be seen by PT and OT as well as social work this AM re: discharge planning/possible intermediate card tender placement in a LTC facility. Nguyen Jaimes PA-C has met family and is questioning 's ability to care for patient. Her neuro exam was completely normal. In reviewing her clinic chart, it appears that the patient has been declining for some time.
--- NOTE | 2019-06-16 09:27 | EDM.PDOC ---
ED HPI GENERAL MEDICAL PROBLEM - General Chief Complaint: Neuro Symptoms/Deficits Stated Complaint: left side weakness Time Seen by Provider: 06/15/19 12:00 Source of Information: Reports: Patient, Family History Limitations: Reports: Physical Impairment - History of Present Illness INITIAL COMMENTS - FREE TEXT/NARRATIVE: She has been having some falls at home. It was concerning at first for a stroke but this was downgraded to non emergent since her symptoms had been going on for the past couple of days. He is taking care of her at home. She has an element of dementia. 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 Urine has been foul. Concentrated. I did do a urine and it was not infected. UC pending. She was found to be hypokalemic so this will be repleted. interlibrary loan services librarian consult to be done to help with SNF screening or to see if she needs adjunctive resources to be safe. EMS brought her in. Grasp was strong and symmetrical. No droop about the face but was leaning to the left and this appears to be chronic or subacute in nature. Please use this note as the admitting history and physical. Will be admitted observation to replete potassium. CT head and CXR done. No acute findings. I talked to and her daughter- I believe. Onset: Gradual Duration: Getting Worse Location: Reports: Lower Extremity, Left, Generalized Severity: Moderate Improves with: Reports: None Worsens with: Reports: Movement Context: Denies: Sick Contact, Trauma Associated Symptoms: Reports: Loss of Appetite, Malaise, Weakness - Related Data Allergies Allergy/AdvReac Type Severity Reaction Status Date / Time No Known Allergies Allergy Verified 09/13/17 23:03 Home Meds: Home Meds LORazepam 0.5 mg PO BID 09/13/17 [History] Memantine HCl [Namenda] 5 mg PO DAILY 09/13/17 [History] polyethylene glycoL 3350 [MiraLAX] 17 gm PO DAILY 09/13/17 [History] Escitalopram Oxalate [Lexapro] 20 mg PO DAILY 06/15/19 [History] Furosemide [Lasix] 40 mg PO DAILY PRN 06/15/19 [History] Levothyroxine [Levothroid] 137 mcg PO ACBREAKFAST 06/15/19 [History] Levothyroxine [Synthroid] 50 mcg PO DAILY 06/15/19 [History] Urea [Urea 20% Crm] 0.3 gram TOP BID 06/15/19 [History] risperiDONE [Risperdal] 0.5 mg PO BID 06/15/19 [History] Past Medical History Cardiovascular History: Reports: Hypertension, Other (See Below) Other Cardiovascular History: bacterial endocarditis, aortic and mitral valve leaks Gastrointestinal History: Reports: None Neurological History: Reports: Alzheimers Disease Psychiatric History: Reports: Dementia, Depression, Psychosis Endocrine/Metabolic History: Reports: Hypothyroidism Social & Family History - Tobacco Use Smoking Status *Q: Former Smoker Used Tobacco, but Quit: Yes Month/Year Tobacco Last Used: 1985 Second Hand Smoke Exposure: No - Caffeine Use Caffeine Use: Reports: None - Recreational Drug Use Recreational Drug Use: No ED ROS GENERAL - Review of Systems Review Of Systems: Unable To Obtain Reason Not Obtained: poor historian due to dementia ED EXAM, GENERAL - Physical Exam Exam: See Below Exam Limited By: Physical Impairment General Appearance: Mild Distress, Moderate Distress Throat/Mouth: Normal Inspection Head: Atraumatic, Normocephalic Neck: Normal Inspection, Supple Respiratory/Chest: No Respiratory Distress, Lungs Clear Cardiovascular: Normal Peripheral Pulses, Regular Rate, Rhythm Peripheral Pulses: 4+: Radial (L) GI/Abdominal: Soft, Non-Tender, No Organomegaly, No Distention, No Abnormal Bruit, No Mass, Pelvis Stable Back Exam: Normal Inspection, Full Range of Motion Lymphatic: No Adenopathy Course - Vital Signs Last Recorded V/S: Last Vital Signs Temp 36.1 C 06/16/19 05:10 Pulse 47 L 06/16/19 05:10 Resp 12 06/16/19 05:10 BP 113/50 L 06/16/19 05:10 Pulse Ox 96 06/16/19 05:10 - Orders/Labs/Meds Orders: Active Orders 24 hr Category Date Time Status Insert Urinary Catheter [OM.PC] Q24H Care 06/15/19 13:30 Ordered Urinary Catheter Assessment [RC] 08,20 Care 06/15/19 13:29 Active Medication Orders Citalopram Hydrobromide (Celexa) 20 mg PO DAILY [facility] Last Admin: 06/16/19 07:47 Dose: 20 mg Potassium Chloride/Sodium Chloride (Normal Saline With 40 Meq Kcl) 1,000 mls @ 150 mls/hr IV ASDIRECTED [facility] Levothyroxine Sodium (Levothyroxine) 112 mcg PO ACBREAKFAST [facility] Last Admin: 06/16/19 06:35 Dose: 112 mcg Levothyroxine Sodium (Levothyroxine) 75 mcg PO ACBREAKFAST [facility] Last Admin: 06/16/19 06:34 Dose: 75 mcg Lorazepam (Ativan) 0.5 mg PO BID [facility] Last Admin: 06/16/19 07:46 Dose: 0.5 mg Admin: 06/15/19 20:41 Dose: 0.5 mg Memantine (Namenda) 5 mg PO DAILY [facility] Last Admin: 06/16/19 07:47 Dose: 5 mg Polyethylene Glycol (Miralax) 17 gm PO DAILY [facility] Last Admin: 06/16/19 07:45 Dose: 17 gm Risperidone (Risperidal) 0.5 mg PO BID [facility] Last Admin: 06/16/19 07:45 Dose: 0.5 mg Admin: 06/15/19 20:41 Dose: 0.5 mg Labs: Laboratory Tests 06/15/19 06/15/19 06/15/19 Range/Units 12:35 12:35 13:30 WBC 6.7 (4.0-10.0) x10^3/uL RBC 4.49 (4.00-5.50) x10^6/uL Hgb 13.5 (12.0-16.0) g/dL Hct 38.6 (33.0-47.0) % MCV 86.0 (78.0-93.0) fL MCH 30.1 (26.0-32.0) pg MCHC 35.0 (32.0-36.0) g/dL RDW Coeff of Marcel 12.2 (10.0-15.0) % Plt Count 248 (130-400) x10^3/uL Neut % (Auto) 77.6 (50.0-80.0) % Lymph % (Auto) 13.1 L (25.0-50.0) % Steele % (Auto) 7.5 (2.0-11.0) % Eos % (Auto) 1.5 (0.0-4.0) % Baso % (Auto) 0.3 (0.2-1.2) % Sodium 139 (136-145) mmol/L Potassium 2.7 L* (3.5-5.1) mmol/L Chloride 95 L (98-107) mmol/L Carbon Dioxide 37 H (21-32) mmol/L Anion Gap 9.7 L (10-20) mmol/L BUN 10 (7-18) mg/dL Creatinine 1.2 H (0.55-1.02) mg/dL Est Cr Clr Drug Dosing 37.13 mL/min Estimated GFR (MDRD) 44 Glucose 108 H (74-106) mg/dL Calcium 8.3 L (8.5-10.1) mg/dL Corrected Calcium 8.54 (8.5-10.1) mg/dL Magnesium 2.4 (1.8-2.4) mg/dL Total Bilirubin 0.9 (0.2-1.0) mg/dL AST 37 (15-37) U/L ALT 32 (14-59) U/L Alkaline Phosphatase 96 (46-116) U/L Troponin I < 0.017 (<=0.056) ng/mL C-Reactive Protein 1.9 H (<=0.9) mg/dL NT-Pro-B Natriuret Pep 201 H (<=125) pg/mL Total Protein 7.2 (6.4-8.2) g/dL Albumin 3.7 (3.4-5.0) g/dL Globulin 3.5 Albumin/Globulin Ratio 1.06 Urine Color Yellow (YELLOW) Urine Appearance Slightly cloudy H (CLEAR) Urine pH 7.0 (5.0-8.0) Ur Specific [place] 1.020 Urine Protein Negative (NEGATIVE) mg/dL Urine Glucose (UA) Negative (NEGATIVE) mg/dL Urine Ketones Negative (NEGATIVE) mg/dL Urine Occult Blood Negative (NEGATIVE) Urine Nitrite Negative (NEGATIVE) Urine Bilirubin Negative (NEGATIVE) Urine Urobilinogen 1.0 (0.2) EU/dL Ur Leukocyte Esterase Trace H (NEGATIVE) Urine RBC 0-5 (NOT SEEN) /HPF Urine WBC 5-10 H (NOT SEEN) /HPF Ur Squamous Epith Cells Few H (NEGATIVE) /HPF Urine Bacteria Occasional H (NEGATIVE) /HPF Urine Mucus Rare H (NEGATIVE) /LPF Meds: Medications Generic Name Dose Route Start Last Admin Trade Name Freq PRN Reason Stop Dose Admin Citalopram Hydrobromide 20 mg 06/16/19 08:00 06/16/19 07:47 Celexa PO 20 mg DAILY [facility] Administration Potassium Chloride/Sodium Chloride 1,000 mls @ 150 mls/hr 06/16/19 08:45 Normal Saline With 40 Meq Kcl IV ASDIRECTED [facility] Levothyroxine Sodium 112 mcg 06/16/19 07:00 06/16/19 06:35 Levothyroxine PO 112 mcg ACBREAKFAST [facility] Administration Levothyroxine Sodium 75 mcg 06/16/19 07:00 06/16/19 06:34 Levothyroxine PO 75 mcg ACBREAKFAST [facility] Administration Lorazepam 0.5 mg 06/15/19 20:00 06/16/19 07:46 Ativan PO 0.5 mg BID [facility] Administration Memantine 5 mg 06/16/19 08:00 06/16/19 07:47 Namenda PO 5 mg DAILY [facility] Administration Polyethylene Glycol 17 gm 06/16/19 08:00 06/16/19 07:45 Miralax PO 17 gm DAILY [facility] Administration Risperidone 0.5 mg 06/15/19 20:00 06/16/19 07:45 Risperidal PO 0.5 mg BID [facility] Administration Discontinued Medications Generic Name Dose Route Start Last Admin Trade Name Yuriq PRN Reason Stop Dose Admin Potassium Chloride/Sodium Chloride 1,000 mls @ 50 mls/hr 06/15/19 20:00 06/15 22:49 Normal Saline With 20 Meq Kcl IV 50 mls/hr ASDIRECTED [facility] Administration Potassium Chloride 20 meq/ 50 mls @ 25 mls/hr 06/15/19 19:53 06/15/19 20:40 Premix IV 06/15/19 21:52 25 mls/hr ONETIME ONE Administration Departure - Departure Time of Disposition: 09:30 Disposition: DC/Tfer to Court of Law En 21 Condition: Good Clinical Impression: Hypokalemia, Risk for falls - Discharge Information *PRESCRIPTION DRUG MONITORING PROGRAM REVIEWED*: Not Applicable *COPY OF PRESCRIPTION DRUG MONITORING REPORT IN PATIENT BEATRIZ: Not Applicable Sepsis Event Note - Evaluation Sepsis Screening Result: No Definite Risk - My Orders Last 24 Hours: My Active Orders 06/15/19 13:29 Urinary Catheter Assessment [RC] 06/15/19 13:30 Insert Urinary Catheter [OM.PC] Q24H - Assessment/Plan Last 24 Hours: My Active Orders 06/15/19 13:29 Urinary Catheter Assessment [RC] 0806/15/19 13:30 Insert Urinary Catheter [OM.PC] Q24H
[2019-06-16] MEDS: Sodium Chloride 0.9% with KCl 1,000 ML IV SCH ×2 (09:50→16:40)
[2019-06-16] MEDS ORDERED: LORazepam 0.5 MG Tab PO PRN (14:43)
[2019-06-17] MEDS: Sodium Chloride 0.9% with KCl 1,000 ML IV SCH
[2019-06-17] MEDS: Levothyroxine 75 MCG Tab PO SCH (06:01)
[2019-06-17] MEDS: Levothyroxine 112 MCG Tab PO SCH (06:01)
[2019-06-17 07:14] LABS: ANION GAP 13.4 mmol/L (10-20); CHLORIDE,CL 104 mmol/L (98-107); SODIUM,NA 141 mmol/L (136-145)
[2019-06-17] MEDS: Memantine 10 MG Tab PO SCH (07:30)
[2019-06-17] MEDS: Polyethylene Glycol 3350 Powder 17 GM Packet PO SCH (07:30)
[2019-06-17] MEDS: risperiDONE 0.25 MG Tab PO SCH (07:31)
[2019-06-17] MEDS: Citalopram 20 MG Tab PO SCH (07:31)
[2019-06-17] MEDS ORDERED: Sulfamethoxazole/Trimethoprim 800-160 MG Tab PO ONE (07:47)
--- NOTE | 2019-06-17 08:09 | PCM.DCSUM1 ---
Discharge Summary - Hospital Course Free Text/Narrative:: Pt. states that she is feeling much better. She states that she is much less weak. Her potassium is up to 3.4 from 2.7 this AM. Plan if for the patient to start home care. Social work has been in contact with patient and family regarding starting services. Pt. requires help bathing. She is non-ambulatory. She requires complete assistance from her to help her with transferring , bathing and other ADL. Pt. did have a trace of leukocyte esterase in her urine on admit. This was not immediately treated, but urine was cultured. The culture grew e coli so patient was started on Bactrim DS twice daily for 7 days for this. Pt. will be started on potassium chloride 20meq twice daily for her hypokalemia. I would like her to follow-up in clinic in 5-7 days for repeat labs , particularly since she is starting bactrim which can affect potassium levels. Diagnosis: Stroke: No - Discharge Data Discharge Date: 06/17/19 Discharge Disposition: Home, Home Health Agency 06 Condition: Good - Referral to Home Health Date of Face to Face Encounter: 06/16/19 Reason for Homebound Status: unable to ambulate. Pt. is moved by using wheelchair. Severe dementia. Primary Care Physician: Mesha Ferro NP Skilled Need: as above - Discharge Diagnosis/Problem(s) (1) Hypokalemia SNOMED Code(s): 62230614 ICD Code: E87.6 - HYPOKALEMIA Status: Acute Current Visit: Yes (2) Risk for falls SNOMED Code(s): 345637656 ICD Code: Z91.81 - HISTORY OF FALLING Status: Acute Current Visit: Yes (3) UTI (urinary tract infection) SNOMED Code(s): 06051641 ICD Code: N39.0 - URINARY TRACT INFECTION, SITE NOT SPECIFIED Status: Acute Current Visit: Yes Qualifiers: Urinary tract infection type: acute cystitis - Patient Summary/Data Consults: Consultations 06/15/19 16:32 Consult to Case Management/Site Engineer [CONS] Routine 06/16/19 09:03 Consult to Physical Therapy [PT Evaluation and Treatment] [CONS] Routine 06/16/19 09:04 OT Evaluation and Treatment [CONS] Routine - Patient Instructions Activity: As Tolerated - Discharge Plan *PRESCRIPTION DRUG MONITORING PROGRAM REVIEWED*: Not Applicable *COPY OF PRESCRIPTION DRUG MONITORING REPORT IN PATIENT BEATRIZ: Not Applicable Prescriptions/Med Rec: Potassium Chloride 20 meq PO BIDMEALS #20 tablet.er Sulfamethoxazole/Trimethoprim [Bactrim Ds Tablet] 1 each PO BID 7 Days #13 tablet Home Medications: Home Meds LORazepam 0.5 mg PO BID 09/13/17 [History] Memantine HCl [Namenda] 5 mg PO DAILY 09/13/17 [History] polyethylene glycoL 3350 [MiraLAX] 17 gm PO DAILY 09/13/17 [History] Escitalopram Oxalate [Lexapro] 20 mg PO DAILY 06/15/19 [History] Furosemide [Lasix] 40 mg PO DAILY PRN 06/15/19 [History] Levothyroxine [Levothroid] 137 mcg PO ACBREAKFAST 06/15/19 [History] Levothyroxine [Synthroid] 50 mcg PO DAILY 06/15/19 [History] Urea [Urea 20% Crm] 0.3 gram TOP BID 06/15/19 [History] risperiDONE [Risperdal] 0.5 mg PO BID 06/15/19 [History] Potassium Chloride 20 meq PO BIDMEALS #20 tablet.er 06/17/19 [Rx] Sulfamethoxazole/Trimethoprim [Bactrim Ds Tablet] 1 each PO BID 7 Days #13 tablet 06/17/19 [Rx] Oxygen Therapy Mode: Room Air Patient Handouts: Fall Prevention in the Home, Adult, [id number], Hypokalemia Forms: ED Department Discharge Referrals: Mesha Ferro [facility] [Primary Care Provider] - - Discharge Summary/Plan Comment DC Time >30 min.: Yes Discharge Summary/Plan Comment: Continue with all previous medications. Bactrim DS twice daily for 7 days Potassium chloride 20meq twice daily Recheck labs in 5-7 days, with post hospital follow-up Home health as per discussion with social work. Pt. requires a huge amount of assistance from and family, as she is unable to ambulate, bathe, prepare her meals or dress. - General Info Functional Status: Reports: Pain Controlled - Review of Systems General: Reports: No Symptoms HEENT: Reports: No Symptoms Pulmonary: Reports: No Symptoms Cardiovascular: Reports: No Symptoms Gastrointestinal: Reports: No Symptoms Genitourinary: Reports: No Symptoms Musculoskeletal: Reports: No Symptoms Skin: Reports: No Symptoms Neurological: Reports: No Symptoms Psychiatric: Reports: No Symptoms - Patient Data Vitals - Most Recent: Last Vital Signs Temp 35.7 C L 06/17/19 04:13 Pulse 69 06/17/19 04:13 Resp 19 06/17/19 04:13 BP 117/45 L 06/17/19 04:13 Pulse Ox 98 06/17/19 04:13 Weight - Most Recent: 75.841 kg I&O - Last 24 hours: Intake & Output 06/16/19 06/17/19 06/17/19 22:59 06:59 14:59 Intake Total 240 Output Total 450 925 Balance -210 -925 Lab Results - Last 24 hrs: Laboratory Results - last 24 hr 06/17/19 06/17/19 Range/Units 06:30 06:30 WBC 6.0 (4.0-10.0) x10^3/uL RBC 4.24 (4.00-5.50) x10^6/uL Hgb 12.6 (12.0-16.0) g/dL Hct 37.0 (33.0-47.0) % MCV 87.3 (78.0-93.0) fL MCH 29.7 (26.0-32.0) pg MCHC 34.1 (32.0-36.0) g/dL RDW Coeff of Marcel 12.3 (10.0-15.0) % Plt Count 228 (130-400) x10^3/uL Neut % (Auto) 76.1 (50.0-80.0) % Lymph % (Auto) 13.9 L (25.0-50.0) % [place] % (Auto) 8.2 (2.0-11.0) % Eos % (Auto) 1.5 (0.0-4.0) % Baso % (Auto) 0.3 (0.2-1.2) % Sodium 141 (136-145) mmol/L Potassium 3.4 L (3.5-5.1) mmol/L Chloride 104 (98-107) mmol/L Carbon Dioxide 27 (21-32) mmol/L Anion Gap 13.4 (10-20) mmol/L BUN 4 L (7-18) mg/dL Creatinine 0.9 (0.55-1.02) mg/dL Est Cr Clr Drug Dosing 49.51 mL/min Estimated GFR (MDRD) > 60 Glucose 99 (74-106) mg/dL Calcium 8.6 (8.5-10.1) mg/dL Corrected Calcium 9.32 (8.5-10.1) mg/dL Total Bilirubin 0.8 (0.2-1.0) mg/dL AST 32 (15-37) U/L ALT 25 (14-59) U/L Alkaline Phosphatase 86 (46-116) U/L Total Protein 6.3 L (6.4-8.2) g/dL Albumin 3.1 L (3.4-5.0) g/dL Globulin 3.2 Albumin/Globulin Ratio 0.97 TRACIE Results - Last 24 hrs: Microbiology 06/15/19 13:30 Urine Culture - Final Urine, Clean Catch Escherichia Coli Escherichia Coli#2 Med Orders - Current: Current Medications Citalopram Hydrobromide (Celexa) 20 mg PO DAILY [facility] Last Admin: 06/17/19 07:31 Dose: 20 mg Potassium Chloride/Sodium Chloride (Normal Saline With 40 Meq Kcl) 1,000 mls @ 50 mls/hr IV ASDIRECTED [facility] Last Admin: 06/17/19 00:00 Dose: 50 mls/hr Levothyroxine Sodium (Levothyroxine) 112 mcg PO ACBREAKFAST [facility] Last Admin: 06/17/19 06:01 Dose: 112 mcg Levothyroxine Sodium (Levothyroxine) 75 mcg PO ACBREAKFAST [facility] Last Admin: 06/17/19 06:01 Dose: 75 mcg Lorazepam (Ativan) 0.5 mg PO BID PRN PRN Reason: Agitation Last Admin: 06/16/19 21:00 Dose: 0.5 mg Memantine (Namenda) 5 mg PO DAILY [facility] Last Admin: 06/17/19 07:30 Dose: 5 mg Polyethylene Glycol (Miralax) 17 gm PO DAILY [facility] Last Admin: 06/17/19 07:30 Dose: 17 gm Risperidone (Risperidal) 0.5 mg PO BID [facility] Last Admin: 06/17/19 07:31 Dose: 0.5 mg Discontinued Medications Potassium Chloride/Sodium Chloride (Normal Saline With 20 Meq Kcl) 1,000 mls @ 50 mls/hr IV ASDIRECTED [facility] Last Admin: 06/15/19 22:49 Dose: 50 mls/hr Potassium Chloride 20 meq/ (Premix) 50 mls @ 25 mls/hr IV ONETIME ONE Stop: 06/15/19 21:52 Last Admin: 06/15/19 20:40 Dose: 25 mls/hr Lorazepam (Ativan) 0.5 mg PO BID [facility] Last Admin: 06/16/19 07:46 Dose: 0.5 mg Trimethoprim/Sulfamethoxazole (Septra Ds) 1 tab PO ONETIME ONE Stop: 06/17/19 07:48 - Exam General: Reports: Alert, Oriented HEENT: Reports: Pupils Equal, Pupils Reactive, EOMI, Mucous Membr. Moist/[place] Neck: Reports: Supple Lungs: Reports: Clear to Auscultation, Normal Respiratory Effort Cardiovascular: Reports: Regular Rate, Regular Rhythm GI/Abdominal Exam: Normal Bowel Sounds, Soft, Non-Tender, No Organomegaly, No Distention, No Mass (Female) Exam: Deferred Rectal (Female) Exam: Deferred Back Exam: Reports: Normal Inspection, Full Range of Motion Skin: Reports: Warm, Dry, Intact Neurological: Reports: No New Focal Deficit Psy/Mental Status: Reports: Alert, Normal Affect, Normal Mood
== END 2019-06-17 15:30 | disposition home health service (06) ==
LOC: VM.ED 11:50 → VM.MS 13:50
PROVIDERS: ADMIT Physician Assistant; ATTEND Physician Assistant
DX: E87.6 Hypokalemia (principal); N39.0 Urinary tract infection, site not specified; R53.1 Weakness; R27.9 Unspecified lack of coordination; I10 Essential (primary) hypertension; G30.9 Alzheimer's disease, unspecified; F02.80 Dementia in other diseases classified elsewhere, unspecified severity, without behavioral disturbance, psychotic disturbance, mood disturbance, and anxiety; F32.9 Major depressive disorder, single episode, unspecified; E03.9 Hypothyroidism, unspecified; Z91.81 History of falling; Z79.899 Other long term (current) drug therapy; Z87.891 Personal history of nicotine dependence
CPT/HCPCS: 36415; 51702; 51798; 70450; 71045; 80053; 81001; 83735; 83880; 84484; 85025; 86140; 87086; 87088; 87186; 93005; 97161; 99285; A9270; J3480; 96365; 96366; 96376; G0378